=== PATIENT | female | born 1975 | race Caucasian/White ===

== ENCOUNTER 2019-10-26 12:07 | Emergency (ER) | payer SELFPAY ==
--- NOTE | 2019-10-26 12:39 | EDM.PDOC ---
ED HPI GENERAL MEDICAL PROBLEM - General Chief Complaint: General Stated Complaint: MEDICAL VIA NORTH Time Seen by Provider: 10/26/19 12:39 Source of Information: Reports: Patient, EMS, Group Home Records History Limitations: Reports: No Limitations - History of Present Illness INITIAL COMMENTS - FREE TEXT/NARRATIVE: pt arrived as a transfer from [facility] and was felt to be hospice pt. She has become more alert and now her is wanting everyting done. She is being somewhat verbal. She was on dialysis and her creatnine is good and her gfr is greater than 60. Onset: Gradual, Other (pt is not having acute problems at this time. ) Duration: Day(s): Location: Reports: Other ( the [facility] is concerned that she is not able to have all of the specialities involved that needs to be. ) Associated Symptoms: Reports: Other (mild dehydration) - Related Data Allergies Allergy/AdvReac Type Severity Reaction Status Date / Time No Known Allergies Allergy Verified 10/26/19 12:10 Home Meds: Home Meds Amiodarone [Cordarone] 200 mg PO DAILY 10/26/19 [History] Citalopram [Citalopram HBr] 20 mg PO DAILY 10/26/19 [History] Enoxaparin [Lovenox] 30 mg SQ BID 10/26/19 [History] Furosemide 10 mg PO DAILY 10/26/19 [History] Isosorbide Dinitrate 5 mg PO TID 10/26/19 [History] Lansoprazole 30 mg PO DAILY 10/26/19 [History] Metoprolol Tartrate 6.25 mg PO BID 10/26/19 [History] Sodium Bicarbonate 650 mg PO TID 10/26/19 [History] Sulfamethoxazole/Trimethoprim [Septra Susp 200-40 MG/5 ML] 10 ml PO DAILY [History] levETIRAcetam [Levetiracetam] 7.5 ml PO BID 10/26/19 [History] mycophenolate mofetiL [Mycophenolate Mofetil] 2.5 ml PO BID 10/26/19 [History] predniSONE [Prednisone] 10 mg PO DAILY 10/26/19 [History] Past Medical History Cardiovascular History: Reports: Blood Clots/VTE/DVT, Hypertension, Other (See Below) Other Cardiovascular History: endocarditis Respiratory History: Reports: Other (See Below) Other Respiratory History: recently intubated at [facility] Genitourinary History: Reports: None Hematologic History: Reports: Other (See Below) Other Hematologic History: states autoimmune disorder Immunologic History: Reports: Other (See Below) Other Immunologic History: states autoimmune disorder - Past Surgical History Cardiovascular Surgical History: Reports: None Respiratory Surgical History: Reports: None GI Surgical History: Reports: Appendectomy, Cholecystectomy, Other (See Below) Other GI Surgeries/Procedures: gtube in place Female Surgical History: Reports: None Social & Family History - Tobacco Use Smoking Status *Q: Never Smoker - Recreational Drug Use Recreational Drug Use: No ED ROS GENERAL - Review of Systems Review Of Systems: See Below Constitutional: Reports: Weakness, Other (pt is on a feeding tube. ) HEENT: Reports: No Symptoms Respiratory: Reports: Other (pt has good oxgenation and is not labored. ) Cardiovascular: Reports: No Symptoms Endocrine: Reports: No Symptoms GI/Abdominal: Reports: No Symptoms : Reports: No Symptoms Musculoskeletal: Reports: No Symptoms Skin: Reports: No Symptoms ED EXAM, GENERAL - Physical Exam Exam: See Below Free Text/Narrative:: pt is alert and is able to answer a number of questions. She is not able to eat and is on a feeding tube only. She was in the hosp from Aug 30 until about 5-6 days ago. She Had infection on her valve leaflets . She has necrotic toes. She is in no resp distress at this point. Exam Limited By: No Limitations General Appearance: Alert, No Apparent Distress, Other (pt does not have a fever and she has good oxgenation) Nose: Normal Inspection Throat/Mouth: Normal Inspection Head: Atraumatic Neck: Normal Inspection Respiratory/Chest: No Respiratory Distress Cardiovascular: Regular Rate, Rhythm GI/Abdominal: Soft, Non-Tender (Female) Exam: Deferred Rectal (Female) Exam: Deferred Back Exam: Normal Inspection Extremities: Other (pt has necrotic toes) Neurological: Alert, Oriented, Normal Cognition Course - Vital Signs Last Recorded V/S: Last Vital Signs Temp 36.3 C 10/26/19 12:22 Pulse 68 10/26/19 12:45 Resp 16 10/26/19 16:05 BP 141/76 H 10/26/19 16:05 Pulse Ox 100 10/26/19 16:05 - Orders/Labs/Meds Orders: Active Orders 24 hr Category Date Time Status CULTURE URINE [RM] Stat Lab 10/26/19 15:14 Received Sodium Chloride 0.9% [Normal Saline] 1,000 ml Med 10/26/19 13:45 Active IV ASDIRECTED Medication Orders Sodium Chloride (Normal Saline) 1,000 mls @ 250 mls/hr IV ASDIRECTED AMNA Last Admin: 10/26/19 14:05 Dose: 250 mls/hr Labs: Laboratory Tests 10/26/19 10/26/19 10/26/19 Range/Units 13:00 13:00 14:46 WBC 6.0 (4.5-11.0) K/uL RBC 3.52 (3.30-5.50) M/uL Hgb 9.4 L (12.0-15.0) g/dL Hct 31.2 L (36.0-48.0) % MCV 89 (80-98) fL MCH 27 (27-31) pg MCHC 30 L (32-36) % Plt Count 249 (150-400) K/uL Neut % (Auto) 87 H (36-66) % Lymph % (Auto) 9 L (24-44) % Lea % (Auto) 4 (2-6) % Eos % (Auto) 1 L (2-4) % Baso % (Auto) 0 (0-1) % Sodium 135 L (140-148) mmol/L Potassium 4.9 (3.6-5.2) mmol/L Chloride 101 (100-108) mmol/L Carbon Dioxide 26 (21-32) mmol/L Anion Gap 12.9 (5.0-14.0) mmol/L BUN 27 H (7-18) mg/dL Creatinine 0.9 (0.6-1.0) mg/dL Est Cr Clr Drug Dosing 73.45 mL/min Estimated GFR (MDRD) > 60 (>60) Glucose 92 (74-106) mg/dL Calcium 8.9 (8.5-10.1) mg/dL Total Bilirubin 0.3 (0.2-1.0) mg/dL AST 49 H (15-37) U/L ALT 100 H (12-78) U/L Alkaline Phosphatase 105 (46-116) U/L Total Protein 5.8 L (6.4-8.2) g/dL Albumin 2.5 L (3.4-5.0) g/dL Globulin 3.3 (2.3-3.5) g/dL Albumin/Globulin Ratio 0.8 L (1.2-2.2) Urine Color Yellow (YELLOW) Urine Appearance Clear (CLEAR) Urine pH 7.5 (5.0-8.0) Ur Specific Upatoi 1.020 (1.008-1.030) Urine Protein Negative (NEGATIVE) mg/dL Urine Glucose (UA) Negative (NEGATIVE) mg/dL Urine Ketones Negative (NEGATIVE) mg/dL Urine Occult Blood Trace-intact H (NEGATIVE) Urine Nitrite Negative (NEGATIVE) Urine Bilirubin Negative (NEGATIVE) Urine Urobilinogen 0.2 (0.2-1.0) EU/dL Ur Leukocyte Esterase Small H (NEGATIVE) Urine RBC 0-5 (0-5) Urine WBC Packed H (0-5) Ur Epithelial Cells Rare Amorphous Sediment Moderate Urine Bacteria Few Urine Mucus Many Meds: Medications Generic Name Dose Route Start Last Admin Trade Name Freq PRN Reason Stop Dose Admin Sodium Chloride 1,000 mls @ 250 mls/hr 10/26/19 13:45 10/26/19 14:05 Normal Saline IV 250 mls/hr ASDIRECTED AMNA Administration Discontinued Medications Generic Name Dose Route Start Last Admin Trade Name Freq PRN Reason Stop Dose Admin Levofloxacin/Dextrose 500 mg/ 100 mls @ 100 mls/hr 10/26/19 15:16 10/26/19 15 :26 Premix IV 10/26/19 16:15 100 mls/hr ONETIME ONE Administration - Re-Assessments/Exams Free Text/Narrative Re-Assessment/Exam: 10/26/19 15:48 pt has good renal funtion. She has a area on her chest xray which I believe is from her previous pneumonia. She has a normal wbc and no fever. 10/26/19 16:45 Her urine was found to be infected. She has been on septra so will swith antibiotic and fluids need to be pushed. Dr huitron should see her for wound care. Departure - Departure Time of Disposition: 16:46 Disposition: Home, Self-Care 01 Condition: Fair Clinical Impression: UTI (urinary tract infection), Dehydration - Discharge Information Referrals: PCP,None [Primary Care Provider] - Forms: ED Department Discharge Care Plan Goals: resume all previous orders except the bactrim switch to cipro 500mg bid per feeding tube .. Sepsis Event Note - Evaluation Sepsis Screening Result: No Definite Risk - Focused Exam Vital Signs: Vital Signs Temp Pulse Resp BP Pulse Ox 10/26/19 16:05 16 141/76 H 100 10/26/19 15:18 16 140/74 98 10/26/19 14:11 18 134/72 98 10/26/19 13:30 18 146/74 H 95 10/26/19 13:00 18 131/70 96 10/26/19 12:45 68 20 128/70 96 10/26/19 12:22 36.3 C 65 18 132/77 95 Date Exam was Performed: 10/26/19 Time Exam was Performed: 16:45 - My Orders Last 24 Hours: My Active Orders 10/26/19 13:45 Sodium Chloride 0.9% [Normal Saline] 1,000 ml IV ASDIRECTED 10/26/19 15:14 CULTURE URINE [RM] Stat - Assessment/Plan Last 24 Hours: My Active Orders 10/26/19 13:45 Sodium Chloride 0.9% [Normal Saline] 1,000 ml IV ASDIRECTED 10/26/19 15:14 CULTURE URINE [RM] Stat
[2019-10-26] MEDS ORDERED: Sodium Chloride 0.9% 1,000 ML IV SCH (13:45)
--- NOTE | 2019-10-26 14:08 | CR ---
CHEST: Portable 10/26/2019 at 1:50 PM CLINICAL HISTORY:SOB COMPARISON:None FINDINGS: Heart size is upper limits of normal. Pulmonary vascularity is normal. There is a left lower lobe pneumonic infiltrate and small left effusion. Impression: Borderline cardiomegaly Left lower lobe pneumonia with small left effusion.
[2019-10-26] MEDS ORDERED: Levofloxacin/Dextrose 5%-Water 500 MG in Premix Bag 1 BAG IV ONE (15:16)
== END 2019-10-26 18:35 | disposition home or self-care (01) ==
LOC: JP.ED 12:07
DX: N39.0 Urinary tract infection, site not specified (principal); E86.0 Dehydration; I10 Essential (primary) hypertension; Z79.899 Other long term (current) drug therapy
CPT/HCPCS: 36415; 71045; 80053; 81001; 85025; 87086; 87088; 87186; 96361; 96365; 99284; J1956; J7030

== ENCOUNTER 2020-02-16 20:00 | Emergency (ER) | payer MEDICAID, OTHER ==
--- NOTE | 2020-02-16 20:34 | EDM.PDOC ---
ED HPI GENERAL MEDICAL PROBLEM - General Chief Complaint: Head Injury Stated Complaint: FALL VIA NORTH Time Seen by Provider: 02/16/20 20:18 Source of Information: Reports: Patient, Jail Records, RN Notes Reviewed History Limitations: Reports: No Limitations - History of Present Illness INITIAL COMMENTS - FREE TEXT/NARRATIVE: Oneida presents today via EMS for complaints of right sided head pain. She states she was trying to transfer herself from her bed to her wheelchair. When she got into the wheelchair she fell back with wheelchair and struck her head. She states she laid for about 45 minutes until help arrived. She reports tailbone pain, stating it is the same as usual. Oneida complains of dizziness with change in position with sensation or room spinning. She denies fever, chills, nausea, vomiting, change in bowel/bladder or other concerns. She reports pressure ulcer to coccyx, ongoing right leg weakness status post stroke. headache Pain Score (Numeric/FACES): 3 coccyx Pain Score (Numeric/FACES): 0 - Related Data Allergies Allergy/AdvReac Type Severity Reaction Status Date / Time No Known Allergies Allergy Verified 02/16/20 23:09 Home Meds: Home Meds Amiodarone [Cordarone] 200 mg PO DAILY 10/26/19 [History] Citalopram [Citalopram HBr] 20 mg PO DAILY 10/26/19 [History] Enoxaparin [Lovenox] 30 mg SQ BID 10/26/19 [History] Furosemide 10 mg PO DAILY 10/26/19 [History] Isosorbide Dinitrate 5 mg PO TID 10/26/19 [History] Lansoprazole 30 mg PO DAILY 10/26/19 [History] Metoprolol Tartrate 6.25 mg PO BID 10/26/19 [History] Sodium Bicarbonate 650 mg PO TID 10/26/19 [History] Sulfamethoxazole/Trimethoprim [Septra Susp 200-40 MG/5 ML] 10 ml PO DAILY 10/26/19 [History] levETIRAcetam [Levetiracetam] 7.5 ml PO BID 10/26/19 [History] mycophenolate mofetiL [Mycophenolate Mofetil] 2.5 ml PO BID 10/26/19 [History] predniSONE [Prednisone] 10 mg PO DAILY 10/26/19 [History] Past Medical History Cardiovascular History: Reports: Blood Clots/VTE/DVT, Hypertension, Other (See Below) Other Cardiovascular History: endocarditis Respiratory History: Reports: Other (See Below) Other Respiratory History: recently intubated at [facility] Genitourinary History: Reports: None Hematologic History: Reports: Other (See Below) Other Hematologic History: states autoimmune disorder Immunologic History: Reports: Other (See Below) Other Immunologic History: states autoimmune disorder - Past Surgical History Cardiovascular Surgical History: Reports: None Respiratory Surgical History: Reports: None GI Surgical History: Reports: Appendectomy, Cholecystectomy, Other (See Below) Other GI Surgeries/Procedures: gtube in place Female Surgical History: Reports: None ED ROS GENERAL - Review of Systems Review Of Systems: See Below Constitutional: Reports: No Symptoms HEENT: Reports: Vertigo. Denies: Dental Pain, Ear Discharge, Ear Pain, Eye Pain, Nose Pain, Throat Pain, Vision Change Respiratory: Reports: No Symptoms Cardiovascular: Reports: No Symptoms Endocrine: Reports: No Symptoms GI/Abdominal: Reports: No Symptoms : Reports: No Symptoms Musculoskeletal: Reports: Other (chronic coccyx pain, chronic pressure ulcer coccyx) Skin: Reports: Wound, Other (chronic pressure ulcer coccyx) Neurological: Reports: Dizziness, Difficulty Walking (since stroke with right leg weakness). Denies: Confusion, Numbness, Paresthesia, Seizure, Tingling, Trouble Speaking, Change in Speech Psychiatric: Reports: No Symptoms Hematologic/Lymphatic: Reports: No Symptoms Immunologic: Reports: No Symptoms ED EXAM, HEAD INJURY - Physical Exam Exam: See Below Exam Limited By: No Limitations General Appearance: Alert, WD/WN, No Apparent Distress Head: Normocephalic, Scalp Tenderness (to right posterior, no contusion noted). No: Scalp Lacerations, Scalp Swelling, Scalp Ecchymosis, Scalp Hematoma, Active Bleeding, Madden's Sign, Facial Abrasions, Facial Ecchymosis, Facial Lacerations, Facial Swelling, Sinus Tenderness, Facial Tenderness, Raccoon Eyes Nexus Criteria: No: Posterior, Midline Cervical Tenderness, Evidence of Intoxication, Altered Level of Consciousness, Focal Neurological Deficit, Painful Distraction Injuries Eyes: Bilateral Eye: EOMI, Nystagmus (bilateral with position changes), PERRL Ears: Normal External Exam, Normal Canal, Hearing Grossly Normal, Normal TMs Nose: Normal Inspection, Normal Mucousa Throat/Mouth: Normal Inspection, Normal Lips, Normal Gums, Normal Oropharynx, Normal Voice, No Airway Compromise Neck: Non-Tender, Full Range of Motion, Normal Alignment, Normal Inspection Respiratory: No Respiratory Distress, Lungs Clear, Normal Breath Sounds, No Accessory Muscle Use, Chest Non-Tender. No: Crackles, Rales, Rhonchi, Wheezing Cardiovascular: Normal Peripheral Pulses, Regular Rate, Rhythm, No Edema, No Gallop, No Murmur, No Rub GI/Abdominal Exam: Normal Bowel Sounds, Soft, Non-Tender, No Organomegaly, No Distention, No Mass, Pelvis Stable. No: Guarding, Rigid, Rebound Back Exam: Normal Inspection, Full Range of Motion. No: CVA Tenderness (R), CVA Tenderness (L), Muscle Spasm, Paraspinal Tenderness Extremities: Normal Inspection, Non-Tender, No Pedal Edema, Normal Capillary Refill, Other (right leg weakness-per her current baseline with no worsening) Neurologic: Alert, Normal Mood/Affect, Oriented x 3 Skin: Normal Color, Warm/Dry - Stefanie Coma Score Best Eye Response ([place]): (4) Open Spontaneously Best Verbal Response (Stefanie): (5) Oriented Best Motor Response (Stefanie): (6) Obeys Commands Stefanie Total: 15 Course - Vital Signs Last Recorded V/S: Last Vital Signs Temp 36.7 C 02/16/20 23:31 Pulse 55 L 02/16/20 23:31 Resp 16 02/16/20 23:31 BP 156/66 H 02/16/20 23:31 Pulse Ox 100 02/16/20 23:31 - Radiology Interpretation Free Text/Narrative:: Head CT without contrast shows no acute findings. - Re-Assessments/Exams Free Text/Narrative Re-Assessment/Exam: 02/16/20 21:15 Patient resting, denies complaints. GCS 15 11/16/201921:53 Patient resting, denies complaints. GCS 15 02/16/20 22:30 Patient resting, denies complaints. Neuro status intact. 02/16/20 22:45 Patient will need transport back to [facility] due to history of CVA, unable to transfer self, unable to ambulate. Departure - Departure Time of Disposition: 21:53 Disposition: Home, Self-Care 01 Condition: Good Clinical Impression: Fall, Concussion injury of brain - Discharge Information *PRESCRIPTION DRUG MONITORING PROGRAM REVIEWED*: Not Applicable *COPY OF PRESCRIPTION DRUG MONITORING REPORT IN PATIENT LUIGI: Not Applicable Instructions: Fall Prevention in the Home, Adult, Physical Therapy After a Stroke Referrals: PCP,None [Primary Care Provider] - Forms: ED Department Discharge Additional Instructions: You have been evaluated and treated for a fall from sitting and striking right posterior head. No evidence of contusion. Head CT without contrast negative for any bleeding or acute findings. Patient does have dizziness with position changes, she may have a slight concussion and suffer with dizziness off and on for several days to weeks. [facility] staff to continue neuro checks: 2 hours after arrival x 1 then every 4 hours x 2 then every 8 hours x 2 then done Push oral fluids to stay hydrated. Take acetaminophen as needed for pain Follow up with primary in 7 to 10 days for recheck and as needed. Return for any worsening, issues or concerns. Sepsis Event Note (ED) - Focused Exam Vital Signs: Vital Signs Temp Temp Pulse Resp BP Pulse Ox 02/16/20 23:31 36.7 C 55 L 16 156/66 H 100 02/16/20 20:45 37.1 C 54 L 14 149/74 H 100 02/16/20 20:12 37.1 C 54 L 14 149/74 H 100 - Assessment/Plan Assessment:: Fall, Concussion injury of brain Plan: Patient evaluated and treated for a fall from sitting and striking right posterior head. No evidence of contusion. Head CT without contrast negative for any bleeding or acute findings. Patient does have dizziness with position changes, she may have a slight concussion and suffer with dizziness off and on for several days to weeks. [employer] staff to continue neuro checks: 2 hours after arrival x 1 then every 4 hours x 2 then every 8 hours x 2 then done Push oral fluids to stay hydrated. Take acetaminophen as needed for pain Follow up with primary in 7 to 10 days for recheck and as needed. Return for any worsening, issues or concerns.
--- NOTE | 2020-02-16 21:19 | CRLCT ---
INDICATION: fall, struck right side of head, takes lovenox CT HEAD WITHOUT CONTRAST TECHNIQUE: Multiple axial CT images were performed through the head without intravenous contrast administration. COMPARISON: No previous studies are currently available for comparison. FINDINGS: No acute intracranial hemorrhage is identified. No extra-axial collections are evident and there is no mass effect or midline shift. Ventricles are normal in size and configuration. There are multiple small bilateral cerebral hemisphere chronic infarcts, including infarcts in the bilateral frontal lobes, parasagittal right frontoparietal region, right temporoparietal area, and left occipital lobe. Osseous structures are within normal limits and no fractures are seen. Included portions of the paranasal sinuses and mastoid air cells are normally aerated except for a mucous retention cyst or polyp in the posterior right sphenoid sinus, mild concentric mucosal thickening in the left sphenoid sinus, and a trace left mastoid effusion. IMPRESSION: 1. No acute intracranial abnormality identified. No fracture is seen. 2. Multiple chronic small infarcts involving both cerebral hemispheres as noted above. 3. Paranasal sinus disease and trace left mastoid effusion. KAYLA PEREZ MD [employer] Dictated by Arturo Perez MD @ 02/16/2020 9:17:51 PM Dictated by: Arturo Perez MD @ 02/16/2020 21:18:11 (Electronically Signed)
== END 2020-02-16 23:50 | disposition home or self-care (01) ==
LOC: JP.ED 20:00
DX: S06.0X9A Concussion with loss of consciousness of unspecified duration, initial encounter (principal); W05.0XXA Fall from non-moving wheelchair, initial encounter; I10 Essential (primary) hypertension; Z90.89 Acquired absence of other organs; Z90.49 Acquired absence of other specified parts of digestive tract; Z79.899 Other long term (current) drug therapy
CPT/HCPCS: 70450; 99283; 99284-25